=== PATIENT | male | born 1945 ===

== ENCOUNTER 2021-12-03 08:00 | Outpatient (CLI) | payer MEDICARE ==
--- NOTE | 2021-12-03 14:17 | XRAY Report ---
PROCEDURE: Chest 2 View X-Ray INDICATIONS: COUGH TECHNIQUE: 2 view(s) of the chest. COMPARISON: None. FINDINGS: Surgical changes and devices: None. Lungs and pleura: No pleural effusions or pneumothorax. Lungs are clear. Mediastinum: Mediastinal contours are normal. Heart size is normal. Bones and chest wall: No suspicious bony abnormalities. Soft tissues appear unremarkable. IMPRESSION: No acute process. Reviewed by: Marc Regalado MD on 12/03/2021 2:16 PM PDT Approved by: Marc Regalado MD on 12/03/2021 2:16 PM PDT Station ID: [id number]
== END 2021-12-03 23:59 | disposition home or self-care (01) ==
LOC: DI.N 08:00
PROVIDERS: ATTEND Physician Assistant Medical
DX: R05.9 Cough, unspecified (principal)